=== PATIENT | male | born 1950 | race Caucasian/White ===

== ENCOUNTER 2023-03-24 10:33 | Emergency (ER) | payer BC, OTHER ==
[2023-03-24 11:19] LABS: Absolute Lymphocytes (CBC) 1.4 K/uL (0.7-4.9); Hematocrit 42.6 % (39.6-49.0); Lymphocytes % 17.3 % (15.3-44.8); MCV 90.7 fL (80-100); MPV 7.7 fL (7.6-11.3); Platelets 171 thou/uL (152-406)
[2023-03-24 11:21] LABS: Urine Bilirubin NEGATIVE (Negative); Urine Blood Negative (Negative); Urine Clarity Clear (Clear); Urine Color Light-Yellow (Yellow); Urine Glucose 4+ (Over) (Negative); Urine Protein NEGATIVE (Negative); Urine Urobilinogen Normal (Normal); Urine pH 6.5 (5.0-7.0)
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
[2023-03-24 11:35] LABS: Albumin 3.6 g/dL (3.4-5.0); Bilirubin Total 0.8 mg/dL (0.2-1.0); Potassium 3.5 mEq/L (3.5-5.1); Protein, Total 7.1 g/dL (6.4-8.2)
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
[2023-03-24] MEDS ORDERED: KETOROLAC 30 MG/ML INJ ONE (11:59)
[2023-03-24 12:00] VITALS: TEMP 98.9
[2023-03-24 12:11] VITALS: BP 137/88; O2SAT 100
== END 2023-03-24 11:50 | disposition home or self-care (01) ==
LOC: ER 10:33
DX: S06.0X0A Concussion without loss of consciousness, initial encounter (principal); E78.00 Pure hypercholesterolemia, unspecified; Z95.1 Presence of aortocoronary bypass graft
CPT/HCPCS: 36415; 70450; 80053; 81003; 85025; 96374; 99285

== ENCOUNTER → 2023-06-06 | Emergency (ER) | payer OTHER ==
--- NOTE | 2023-06-06 11:05 | RAD REPORT ---
EXAM DESCRIPTION: RAD - Shoulder Left 2 View - 06/06/2023 10:40 am CLINICAL HISTORY: Left shoulder pain status post fall FINDINGS: No fracture or dislocation is seen. A 17 millimeters calcification lies medial to the left humeral neck. It probably is chronic. Follow-u p x-ray in 3 months recommended to assess stability Moderate osteoarthritis AC joint
--- NOTE | 2023-06-06 11:30 | ER ---
Nurse's Notes [facility] Name: Shaun Ruiz Age: 73 yrs Sex: Male : 1950 Arrival Date: 06/06/2023 Time: 09:53 Bed 12 Private MD: Diagnosis: Pain in left shoulder Presentation: 06/06 10:10 Chief complaint: Hand slipped down handle when exiting shower yesterday, felt and heard hb pop in left shoulder, c/o pain 7/10 today. Coronavirus screen: At this time, the client does not indicate any symptoms associated with coronavirus-19. Ebola Screen: No symptoms or risks identified at this time. Initial Sepsis Screen: Does the patient meet any 2 criteria? No. Patient's initial sepsis screen is negative. Does the patient have a suspected source of infection? No. Patient's initial sepsis screen is negative. Risk Assessment: Do you want to hurt yourself or someone else? Patient reports no desire to harm self or others. Onset of symptoms was June 05, 2023. 10:10 Method Of Arrival: Ambulatory hb 10:10 Acuity: ALYSHA 4 hb Historical: - Allergies: 10:13 No Known Allergies; hb - Home Meds: 10:13 losartan oral [Active]; hb - PMHx: 10:13 Hypercholesterolemia; Hypertension; hb - PSHx: 10:13 CABG; hb - Immunization history:: Client reports receiving the 2nd dose of the Covid vaccine, Flu vaccine is up to date. - Social history:: Smoking status: Patient denies any tobacco usage or history of. Vital Signs: 10:10 BP 212 / 90; Pulse 68; Resp 16; Temp 98.1; Pulse Ox 100% on R/A; Weight 90.72 kg; hb Height 5 ft. 9 in. ; Pain 7/10; 10:10 Body Mass Index 29.53 (90.72 kg, 175.26 cm) hb 10:10 Pain Scale: Adult hb ED Course: 09:58 Patient arrived in ED. mg5 10:07 Riki Bess MD is Attending Physician. ec2 10:13 Triage completed. hb 10:13 Arm band placed on. hb 10:42 Shoulder Left (2 View) XRAY In Process Unspecified. EDMS Administered Medications: No medications were administered Outcome: 11:30 Discharge ordered by . ec2 11:57 Patient left the ED. hb Signatures: Dispatcher [employer] Paulette Zuluaga RN RN hb [place], [place] mg5 Riki Bess MD MD ec2
--- NOTE | 2023-06-06 11:30 | EDPHYS ---
Physician Documentation [facility] Name: Shaun Ruiz Age: 73 yrs Sex: Male : 1950 Arrival Date: 06/06/2023 Time: 09:53 Bed 12 Private MD: ED Physician Riki Bess HPI: 06/06 10:20 This 73 yrs old Male presents to ER via Ambulatory with complaints of ec2 Shoulder Pain, Fall Injury. 10:20 Patient arrives today for evaluation of left shoulder pain. States that he was getting ec2 into the shower subsequently slipped and fell and grabbed a towel rack with his left hand to keep him from falling to the ground. States that he felt a crunch. Complained of pain in the left shoulder. Denies any head strike or chest pain or difficulty breathing.. Historical: - Allergies: 10:13 No Known Allergies; hb - Home Meds: 10:13 losartan oral [Active]; hb - PMHx: 10:13 Hypercholesterolemia; Hypertension; hb - PSHx: 10:13 CABG; hb - Immunization history:: Client reports receiving the 2nd dose of the Covid vaccine, Flu vaccine is up to date. - Social history:: Smoking status: Patient denies any tobacco usage or history of. ROS: 10:20 Constitutional: as per hpi ec2 Exam: 10:20 Constitutional: GEN: NAD Head: atraumatic Eyes: EOMI Ears: External ears are ec2 normal. CV: regular rate LUNGS: no respiratory distress ABD: non-distended SKIN: no evidence of rashes MSK: no evidence of trauma, left shoulder with TTP and pain with ROM. Intact distal neurovascular status. NEURO: moves all extremities equally Vital Signs: 10:10 BP 212 / 90; Pulse 68; Resp 16; Temp 98.1; Pulse Ox 100% on R/A; Weight 90.72 kg; hb Height 5 ft. 9 in. ; Pain 7/10; 10:10 Body Mass Index 29.53 (90.72 kg, 175.26 cm) hb 10:10 Pain Scale: Adult hb MDM: 10:17 Patient medically screened. ec2 10:20 Data reviewed: vital signs, and as a result, I will. ED course: Patient arrives today ec2 for evaluation of left shoulder pain. Examination remarkable for MSK findings as noted above. Will obtain a left shoulder x-ray, will also place patient in a sling. Currently considered process such as ligamentous injury, bony injury. Patient otherwise intact neurovascularly, low suspicion for nerve or arterial injury.. 10:22 ED course: Of note patient is hypertensive, has a history of hypertension, denies any ec2 symptoms, no complaints to indicate workup for endorgan damage.. 11:27 ED course: Shoulder x-ray shows no fracture, radiology comments about calcification, ec2 will have him follow-up outpatient with primary care doctor. Will keep the patient in the sling and instructed him on ophe-gip-learwle medications as well as shoulder exercise. Suspect shoulder strain. Return precautions given.. 06/06 10:20 Order name: Shoulder Left (2 View) XRAY; Complete Time: 11:27 ec2 06/06 10:20 Order name: Sling; Complete Time: 11:52 ec2 Administered Medications: No medications were administered Disposition Summary: 06/06/23 11:30 Discharge Ordered Notes: Location: Home ec2 Condition: Stable ec2 Diagnosis - Pain in left shoulder ec2 Followup: ec2 - With: Private Physician - When: - Reason: Re-evaluation by your physician Discharge Instructions: - Discharge Summary Sheet ec2 - Shoulder Pain ec2 Forms: - Medication Reconciliation Form ec2 - Thank You Letter ec2 - Antibiotic Education ec2 - Prescription Opioid Use ec2 - Patient Portal Instructions ec2 - Leadership Thank You Letter ec2 Prescriptions: - methocarbamol 500 mg Oral tablet - take 2 tablets ORAL route 4 times per day; 20 tablet; Refills: 0, Product ec2 Selection Permitted Signatures: Dispatcher [employer] Paulette Zuluaga RN RN Riki Bess MD MD ec2
[2023-06-06 14:39] VITALS: BP 212/90; TEMP 98.1; O2SAT 100
== END ==
LOC: ER 09:53
DX: M25.512 Pain in left shoulder (principal); W18.2XXA Fall in (into) shower or empty bathtub, initial encounter; Y93.F1 Activity, caregiving, bathing; I10 Essential (primary) hypertension; E78.00 Pure hypercholesterolemia, unspecified; Z95.1 Presence of aortocoronary bypass graft; Z79.899 Other long term (current) drug therapy
CPT/HCPCS: 99281